=== PATIENT | female | born 1940 | race Caucasian/White ===

== ENCOUNTER 2021-05-09 13:26 | Emergency (ER) | payer MEDICARE, SELFPAY ==
--- NOTE | ~2021-05-09 | XR_ITS ---
EXAMINATION: XR finger 4th RT min 2V DATE: 05/09/2021 15:12 INDICATION: Postreduction fourth proximal phalangeal fracture TECHNIQUE: Dorsal palmar and lateral views of the right digit were obtained COMPARISON: 05/01/2021 at 1:54 PM FINDINGS: Decreased now one third shaft width palmar displacement and decreased now 20 degrees dorsal angulatio n of a transverse fracture across the proximal metadiaphyseal region of the right fourth proximal pha lanx. Splinting along the palmar side of the digit. Prominent soft tissue swelling about the base of the fourth digit. Mild to moderate polyarticular osteoarthritis as detailed on the prior radiograph. IMPRESSION: 1. Improved alignment post closed reduction and splinting of an extra articular fracture near the bas e of the fourth proximal phalanx. Reviewed, dictated and finalized at location A. IMPRESSION: 1. Improved alignment post closed reduction and splinting of an extra articular fracture near the base of the fourth proximal phalanx.
--- NOTE | ~2021-05-09 | XR_ITS ---
EXAMINATION: XR hand RT min 3V DATE: 05/09/2021 14:02 INDICATION: Right hand pain and deformity of the digit post fall TECHNIQUE: Posteroanterior, oblique and lateral views of the right hand were obtained. COMPARISON: None. FINDINGS: Diffuse osteopenia. Transverse metadiaphyseal fracture at the proximal aspect of the fourth proximal phalanx. There is two thirds shaft widths palmar displacement and 45 degree dorsal angulation. No oth er fractures identified. Alignment is otherwise normal. Polyarticular osteoarthritis, moderate severi ty at several of the interphalangeal joints with distal predominance and mild at the remaining interp halangeal joints, the metacarpophalangeal joints and first and fifth carpal metacarpal joints. There is suggestion of chronic erosions with sclerotic margins at the dorsal base of the fifth metacarpal, at the ulnar aspect of the head of the second proximal phalanx and at the tip of the ulnar styloid pr ocess. Periarticular soft tissue swelling at the proximal interphalangeal joints with more diffuse sw elling in the proximal to mid fourth digit. IMPRESSION: 1. Mild palmar displacement and 45 degrees dorsal angulation of a fracture at the proximal metadiaphy sis of the fourth proximal phalanx. 2. Diffuse osteopenia. 3. Mild to moderate polyarticular osteoarthritis. 4. A few chronic appearing erosions at the base of the fifth carpal metacarpal, head of the second pr oximal phalanx at the ulnar styloid process which could be due to an inflammatory arthritis or dmitry lline deposition diseases such as gout. Reviewed, dictated and finalized at location A. IMPRESSION: 1. Mild palmar displacement and 45 degrees dorsal angulation of a fracture at t he proximal metadiaphysis of the fourth proximal phalanx. 2. Diffuse osteopenia. 3. Mild to moderate polyarticular osteoarthritis. 4. A few chronic appearing erosions at the base of the fifth carpal metacarpal, head of the second proximal phalanx at the ulnar styloid process which could b e due to an inflammatory arthritis or crystalline deposition diseases such as g out.
[2021-05-09 13:33] VITALS: BP 127/91; PULSE 54; RESP 16; TEMP 36.6; O2SAT 100
--- NOTE | 2021-05-09 15:08 | ED.UPPEXIN ---
HPI - Extremity Injury (Upper) General Chief Complaint: Extremity Injury, Upper Stated Complaint: finger injury Time Seen by Provider: 05/09/21 13:31 Source: patient Mode of arrival: ambulatory Limitations: no limitations History of Present Illness HPI narrative: This is a 81 year old female that presents to the ER for right hand injury sustained just prior to arrival. Reports she had tripped and was trying to break her fall with her right hand. Reports pain and swelling to the right fourth finger with obvious deformity to the area. Reports decreased ROM in the finger. Denies hitting her head, loss of consciousness, other injuries, weakness or numbness. Related Data Home Medications Medication Instructions Recorded Confirmed omeprazole 20 mg capsule,delayed 20 mg PO DAILY 05/02/21 05/02/21 release Allergies Allergy/AdvReac Type Severity Reaction Status Date / Time No Known Allergies Allergy Verified 05/09/21 13:33 Review of Systems Review of Systems: CONSTITUTIONAL: Denies fever MUSCULOSKELETAL: Reports joint pain, and myalgia. NEUROLOGIC: Denies numbness All systems reviewed & are unremarkable except as noted in HPI and below PMFSH Past Medical History Medical History (Updated 05/09/21 @ 16:06 by Brti Navarro PA-C) Essential hypertension Hypothyroidism Family History Family History Father Family history of premature coronary heart disease Carcinoma of colon Family history of diabetes mellitus in first degree relative Mother Cerebrovascular accident Carcinoma of colon Family history of malignant neoplasm of breast in first degree relative Social History Social History (Updated 05/02/21 @ 13:57 by Ligia Smith MA) Smoking status: Former smoker Alcohol intake: current Substance use: never Exam Narrative: GENERAL: Well-appearing, well-nourished, and in no acute distress. HEAD: Normocephalic, atraumatic. EYES: EOMI. EXTREMITIES: Normal range of motion, except decreased ROM in the right 4th finger with obvious deformity. Moderate bruising and edema to the finger. Normal radial pulses. Normal sensation SKIN: Warm, dry, no rash. NEURO: No focal deficits. Alert and oriented x3. PSYCH: Normal mood and affect Course Consultations Consultation #1: Spoke with Dr. Jay about patient and workup who will follow up in clinic Date: 05/09/21 Time: 15:30 Vital Signs Vital signs: Vital Signs Temperature 97.9 F 07/28/21 13:33 Pulse Rate 54 L 05/09/21 13:33 Respiratory Rate 16 05/09/21 13:33 Blood Pressure 127/91 H 05/09/21 13:33 Pulse Oximetry 100 05/09/21 13:33 Temperature 97.9 F 05/09/21 13:33 Pulse Rate 54 L 05/09/21 13:33 Respiratory Rate 16 05/09/21 13:33 Blood Pressure 127/91 H 05/09/21 13:33 Pulse Oximetry 100 05/09/21 13:33 Procedures Orthopedic Fracture Reduction Fracture #1: Fracture Reduction date: 05/09/21 Fracture Reduction time: 15:59 Side: right Fracture Reduction Location: finger Analgesia: nerve block Pre-Procedure Neuro Vascular Exam: normal Technique: direct manipulation Post Reduction X-rays Demonstrate: acceptable reduction Post-reduction neuro exam: intact Post-reduction vascular exam: intact Splint Applied: Yes Patient Tolerated Procedure: well and no complications Orthopedic Splinting/Casting Injury #1: Splinting/Casting Date: 05/09/21 Splinting/Casting Time: 16:04 Side: right Upper Extremity Injury Location: finger Splint: prefabricated Pre-Formed: metal foam finger splint Pre-Procedure Neuro Vascular Exam: normal Post-Procedure Neuro Vascular Exam: normal MDM - Extremity Injury (Upper) MDM Narrative Medical decision making narrative: Patient presents to the ER for right hand injury sustained just prior to arrival. Right hand x-ray shows mild palmar di
[2021-05-09 16:13] VITALS: BP 136/84; PULSE 60; RESP 16; O2SAT 100
== END 2021-05-09 16:15 | disposition home or self-care (01) ==
PROVIDERS: Emergency Provider Emergency Medicine; PCP Family Medicine
DX: S62.614A Displaced fracture of proximal phalanx of right ring finger, initial encounter for closed fracture (principal); I10 Essential (primary) hypertension; E03.9 Hypothyroidism, unspecified; W01.0XXA Fall on same level from slipping, tripping and stumbling without subsequent striking against object, initial encounter
CPT/HCPCS: 26725; 73130; 73140; 99285

== ENCOUNTER 2021-09-04 10:20 | Outpatient (CLI) | payer MEDICARE, SELFPAY ==
[2021-09-04 10:39] LABS: Basophils Percent Auto 0.7 % (0.2-1.2); Eosinophils Absolute Auto 0.2 K/mm3 (0-0.3); Eosinophils Percent Auto 2.9 % (0-4.4); Hematocrit 42.3 % (37.0-47.0); Hemoglobin 14.5 g/dL (12.0-15.0); Immature Granulocyte Absolute 0.02 K/mm3 (0.00-0.031); Immature Granulocyte Percent A 0.3 % (0-0.5); Lymphocytes Absolute Auto 1.02 K/mm3 (0.9-3.2); Lymphocytes Percent Auto 16.7 % (18.3-44.2); Mean Corpuscular HGB Conc 34.3 g/dl (32-36); Mean Corpuscular Hemoglobin 33.2 pg (26-34); Mean Corpuscular Volume 96.8 fl (80-100); Mean Platelet Volume 10.9 fl (7.4-10.4); Monocytes Absolute Auto 0.6 K/mm3 (0.1-0.6); Neutrophils Absolute Auto 4.3 K/mm3 (1.3-6.7); Neutrophils Percent Auto 70.4 % (45.5-73.1); Platelet Count Result 207 k/mm3 (150-375); Red Blood Count 4.37 M/mm3 (4.2-5.4); Red Cell Distribution Width 12.6 % (11.5-14.5); White Blood Count 6.1 K/mm3 (4.5-10.0)
[2021-09-04 11:23] LABS: Anion Gap 6 mmol/L (8-16); Blood Urea Nitrogen 20 mg/dL (7-17); Calcium 9.6 mg/dL (8.4-10.2); Carbon Dioxide 29 mmol/L (22-30); Chloride 101 mmol/L (98-107); Cholesterol 222 mg/dL (0-200); Estimated Glomerular Filt Rate > 60; Glucose 108 mg/dL (65-110); HDL Direct 73 mg/dL; Potassium 4.1 mmol/L (3.4-5.0); Sodium 136 mmol/L (137-145); Triglycerides 146 mg/dL (<150)
[2021-09-04 11:34] LABS: LDL Cholesterol Direct 96 mg/dL
[2021-09-04 12:10] LABS: Free T4 Free Thyroxine 1.15 ng/mL (0.78-2.19)
== END 2021-09-04 10:21 | disposition home or self-care (01) ==
LOC: ANHLAB 10:22
PROVIDERS: PCP Family Medicine; Visit Provider Physician Assistant Medical
DX: I10 Essential (primary) hypertension (principal); E03.9 Hypothyroidism, unspecified; E78.00 Pure hypercholesterolemia, unspecified
CPT/HCPCS: 36415; 80048; 80061; 84439; 84443; 85025

== ENCOUNTER 2021-10-16 13:35 | Outpatient (CLI) | payer MEDICARE, SELFPAY ==
--- NOTE | 2021-10-16 13:42 | ECHO_ITS ---
Patient Info Name: Macie Jimenes Age: 81 years : 1940 Gender: Female Ht: 67 in Wt: 135 lbs BSA: 1.70 m2 HR: 98 bpm BP: 167 / 99 mmHg Technical Quality: Fair Exam Date: 10/16/2021 1:51 PM Exam Location: [facility] Patient Status: Outpatient Admit Date: 10/16/2021 Staff Ordering Physician: Lesli Willoughby PAC Batch Blender: Frances Santiago RDCS Attending Provider: Lesli Willoughby PAC Referring Physician: Case SINGLETON; Exam Type: CA echo doppler color flow Study Info Indications R01.1 - Cardiac murmur, unspecified Complete two-dimensional, color flow and Doppler transthoracic echocardiogram is performed. Summary 1. Complete two-dimensional, color flow and Doppler transthoracic echocardiogram is performed. 2. Left ventricular chamber dimension is normal. 3. Left ventricular systolic function is normal, estimated at 65-70%. 4. There is mildly increased left ventricular wall thickness. 5. The left ventricular diastolic function is grade I diastolic dysfunction. 6. E/e' 8 is minimally elevated. 7. Global longitudinal strain is normal at -21.8%. 8. There is mild aortic valve sclerosis. 9. There is trace aortic valve regurgitation. 10. The mitral valve has mildly calcified annulus. 11. No pulmonary hypertension, estimated pulmonary arterial systolic pressure is 25 mmHg. Left Ventricle E/e' 8 is minimally elevated. Global longitudinal strain is normal at -21.8%. Left ventricular chamber dimension is normal. Left ventricular systolic function is normal, estimated at 65-70%. There is mildly increased left ventricular wall thickness. The left ventricular diastolic function is grade I diastolic dysfunction. Right Ventricle Right ventricular systolic function is normal and with normal TAPSE 2.5 cm. Right ventricular chamber dimension is normal. Left Atria Left atrial chamber dimension is normal. Right Atria Right atrial chamber dimension is normal. Aortic Valve The aortic valve is trileaflet. There is mild aortic valve sclerosis. There is no aortic valve stenosis. There is trace aortic valve regurgitation. Pulmonic Valve There is no pulmonic regurgitation. Mitral Valve The mitral valve has mildly calcified annulus. There is no mitral valve stenosis. There is no mitral valve regurgitation. Tricuspid Valve There is no tricuspid valve regurgitation. No pulmonary hypertension, estimated pulmonary arterial systolic pressure is 25 mmHg. Pericardium/Pleural There is no pericardial effusion. Inferior Vena Cava Normal inferior vena cava with >50% collapse upon inspiration consistent with normal right atrial pressure, 5 mmHg. Aorta The aortic root size at the sinus of Valsalva is normal. Left Ventricular Outflow Tract Name Value Normal LVOT 2D LVOT Diameter 2.0 cm LVOT Doppler LVOT Peak Gradient 7 mmHg LVOT Mean Gradient 3 mmHg LVOT VTI 28 cm LVOT VTI/AV VTI Ratio 0.8 LVOT Stroke Volume 88 ml LVOT CO
== END 2021-10-16 13:36 | disposition home or self-care (01) ==
LOC: ANHCARD 13:37
PROVIDERS: PCP Family Medicine; Visit Provider Physician Assistant Medical
DX: R01.1 Cardiac murmur, unspecified (principal); I70.0 Atherosclerosis of aorta
CPT/HCPCS: 93306

== ENCOUNTER 2021-10-25 09:50 | Outpatient (CLI) | payer MEDICARE, SELFPAY ==
[2021-10-25 10:29] LABS: Anion Gap 8 mmol/L (8-16); Blood Urea Nitrogen 13 mg/dL (7-17); Calcium 9.5 mg/dL (8.4-10.2); Carbon Dioxide 29 mmol/L (22-30); Chloride 100 mmol/L (98-107); Estimated Glomerular Filt Rate > 60; Glucose 98 mg/dL (65-110); Potassium 4.1 mmol/L (3.4-5.0); Sodium 137 mmol/L (137-145)
== END 2021-10-25 09:51 | disposition home or self-care (01) ==
LOC: ANHLAB 09:54
PROVIDERS: PCP Family Medicine; Visit Provider Physician Assistant Medical
DX: E87.1 Hypo-osmolality and hyponatremia (principal); E03.9 Hypothyroidism, unspecified
CPT/HCPCS: 36415; 80048; 84443

== ENCOUNTER 2022-01-21 00:02 | Day surgery (SDC) | payer MEDICARE, OTHER, SELFPAY ==
[2022-01-09 13:25] VITALS: BMI 22.6
--- NOTE | 2022-01-20 11:12 | PM.HPGS ---
History of Present Illness History of Present Illness Consent: Risks, benefits, and alternatives have been discussed and questions answered. Patient agrees to proceed with procedure. Chief complaint: blanchard's Esophagus, family hx of colon ca Narrative: Macie Jimenes is a 81 year old female With a past history of known Blanchard's esophagus. Actually when she had her last EGD, almost 3 years ago, biopsies showed no Blanchard's mucosa At that time on the samples taken. She remains on omeprazole 20 mg daily. She also has history of colon polyps. Her last colonoscopy was 6 years ago. There is a family history of colon cancer Review of Systems Review of Systems: All systems reviewed & are unremarkable except as noted in HPI and below PMFSH Past Medical History Medical History Essential hypertension Hypothyroidism Family History Family History Father Family history of premature coronary heart disease Carcinoma of colon Family history of diabetes mellitus in first degree relative Mother Cerebrovascular accident Carcinoma of colon Family history of malignant neoplasm of breast in first degree relative Social History Social History Smoking status: Never smoker Alcohol intake: current Substance use: never Substance use type: does not use Living arrangements: with family Spiritual care concerns: No Meds Home Medications and Allergies Home Medications Medication Instructions Recorded Confirmed Type omeprazole 20 mg capsule,delayed 20 mg PO DAILY #90 cap 07/26/21 01/21/22 Rx release amlodipine 10 mg tablet 10 mg PO DAILY #90 tablet 08/31/21 01/21/22 Rx trazodone 50 mg tablet 100 mg PO QPM #180 tablet 08/31/21 01/21/22 Rx benazepril 40 mg tablet 40 mg PO DAILY #90 tablet 09/19/21 01/21/22 Rx levothyroxine 75 mcg tablet 75 mcg PO DAILY #30 tablet 10/26/21 01/21/22 Rx tizanidine 2 mg tablet 2 mg PO TID PRN #20 tablet 10/31/21 01/21/22 Rx aspirin 81 mg PO DAILY 01/09/22 01/21/22 History Allergies Allergy/AdvReac Type Severity Reaction Status Date / Time No Known Allergies Allergy Verified 01/21/22 09:27 Exam Const: General: alert Orientation/consciousness: patient oriented x3 Resp: Auscultation: clear to auscultation bilaterally Cardio: Rhythm: regular rhythm GI: GI Palp: Yes Soft to palpation and No Tenderness to palpation present (GI) Neuro: General: patient oriented x3 Assessment and Plan Assessment and plan (1) Blanchard's esophagus without dysplasia: Code(s): K22.70 - Blanchard's esophagus without dysplasia Status: Acute Assessment and Plan: EGD with possible biopsy or dilatation or cautery. (2) Colon cancer screening: Code(s): Z12.11 - Encounter for screening for malignant neoplasm of colon Status: Acute Assessment and Plan: Colonoscopy with possible biopsy or polypectomy or cautery or injection of substances.
[2022-01-21 09:20] VITALS: BP 143/81; PULSE 81; RESP 18; TEMP 36.7; O2SAT 98; BMI 21.6
[2022-01-21] MEDS: LACTATED RINGERS 1,000 ML 150 ML IV CONT (09:40)
--- NOTE | 2022-01-21 09:58 | P.PNAN_ITS ---
Anes - Initial Pre Proc Eval Procedure: Operation Date: 01/21/22 10:30 Proposed Procedures p Esophagogastroduodenoscopy & Screening Colonoscopy - Max Barillas MD Date/Time: 01/21/22 09:58 Surgeon: Max Barillas MD Pre Op Diagnosis: blanchard's Esophagus, family hx of colon ca Patient Data Age: 81 Gender: F Height: 1.68 m Weight: 60.7 kg Last Vital Signs Temp 98.0 F 01/21/22 09:20 Pulse 81 01/21/22 09:20 Resp 18 01/21/22 09:20 BP 143/81 H 01/21/22 09:20 Pulse Ox 98 01/21/22 09:20 Allergies Allergy/AdvReac Type Severity Reaction Status Date / Time No Known Allergies Allergy Verified 01/21/22 09:27 Home Medications Medication Instructions Recorded Confirmed Type omeprazole 20 mg capsule,delayed 20 mg PO DAILY #90 cap 07/26/21 01/21/22 Rx release amlodipine 10 mg tablet 10 mg PO DAILY #90 tablet 08/31/21 01/21/22 Rx trazodone 50 mg tablet 100 mg PO QPM #180 tablet 08/31/21 01/21/22 Rx benazepril 40 mg tablet 40 mg PO DAILY #90 tablet 09/19/21 01/21/22 Rx levothyroxine 75 mcg tablet 75 mcg PO DAILY #30 tablet 10/26/21 01/21/22 Rx tizanidine 2 mg tablet 2 mg PO TID PRN #20 tablet 10/31/21 01/21/22 Rx aspirin 81 mg PO DAILY 01/09/22 01/21/22 History Patient hx anesthesia problems: none Family hx anesthesia problems: none Results Review: All pre-operative results and documents have been reviewed as part of the pre-operative evaluation. [facility] Past Medical History Medical History Essential hypertension Hypothyroidism Family History Family History Father Family history of premature coronary heart disease Carcinoma of colon Family history of diabetes mellitus in first degree relative Mother Cerebrovascular accident Carcinoma of colon Family history of malignant neoplasm of breast in first degree relative Social History Social History Smoking status: Never smoker Alcohol intake: current Substance use: never Substance use type: does not use Living arrangements: with family Spiritual care concerns: No Anes - Eval Final PreProcedure Day of Procedure 01/21/22 09:58 Patient weight: normal Heart: regular rate and rhythm Lungs: clear to auscultation Airway: Mallampati scale class II Neurological: alert and oriented Last oral intake: >/= 8 hours ASA classification: II Emergent: no Anesthetic plan: proceed Anesthesia type and monitoring: general GIVS and standard monitoring Results Review: All pre-operative results and documents have been reviewed as part of the pre-operative evaluation. Informed Consent: The patient's anesthetic plan and its attendant risks and benefits were discussed with the patient/family/POA. Questions were solicited and answers provided to the satisfaction of the patient/family/POA.
[2022-01-21] MEDS: BENZOCAINE (*SP) 60 ML SPRAY CAN (HURRICAINE) 1 SPRAY MUCOUS MEM (10:20)
--- NOTE | 2022-01-21 10:49 | SUR.OPER ---
EGD START: 1022; END: 1026. COLONOSCOPY START: 1034; END: 1049.
[2022-01-21 10:53] VITALS: BP 110/67; PULSE 59; RESP 22; O2SAT 100
[2022-01-21 11:03] VITALS: BP 119/72; PULSE 63; RESP 22; O2SAT 100
[2022-01-21 11:13] VITALS: BP 124/84; PULSE 62; RESP 20; O2SAT 62
== END 2022-01-21 11:26 | disposition home or self-care (01) ==
PROVIDERS: PCP Family Medicine; Visit Provider Internal Medicine Gastroenterology
PROC: 0DJ08ZZ Inspection of Upper Intestinal Tract, Via Natural or Artificial Opening Endoscopic (ICD-10-PCS; CPT 43235; principal; 2022-01-21 10:30)
DX: Z12.11 Encounter for screening for malignant neoplasm of colon (principal); Z80.0 Family history of malignant neoplasm of digestive organs; K21.00 Gastro-esophageal reflux disease with esophagitis, without bleeding; K22.2 Esophageal obstruction; K44.9 Diaphragmatic hernia without obstruction or gangrene; K57.30 Diverticulosis of large intestine without perforation or abscess without bleeding; I10 Essential (primary) hypertension; E03.9 Hypothyroidism, unspecified
CPT/HCPCS: 43239; G0105; 88305; J2704; J7120

== ENCOUNTER 2022-01-26 12:50 | Emergency (ER) | payer MEDICARE, OTHER, SELFPAY ==
--- NOTE | ~2022-01-26 | XR_ITS ---
EXAMINATION: XR hip RT min 2V DATE: 01/26/2022 13:34 INDICATION: Right hip pain. TECHNIQUE: 3 views of right hip were obtained. COMPARISON: None. FINDINGS: Bone alignment is normal. No fracture. There is mild right hip osteoarthritis. There is sev ere lumbar spondylosis. IMPRESSION: 1. Mild right hip osteoarthritis. Reviewed, dictated and finalized at location A.
--- NOTE | ~2022-01-26 | XR_ITS ---
EXAMINATION: XR chest 2V DATE: 01/26/2022 13:34 INDICATION: Cough. TECHNIQUE: Frontal and lateral views of the chest were obtained. COMPARISON: None. FINDINGS: The chest demonstrates clear lungs without pneumonia, pleural effusion, or pneumothorax. Th e heart size is normal. IMPRESSION: 1. No acute cardiopulmonary disease. Reviewed, dictated and finalized at location A.
[2022-01-26 13:03] VITALS: BP 128/82; PULSE 90; RESP 16; TEMP 37.1; O2SAT 95
--- NOTE | 2022-01-26 13:17 | ED.GENADULT ---
HPI - General Adult General Chief complaint: Upper Respiratory Infection Stated complaint: sore throat Source: patient and family Mode of arrival: ambulatory Limitations: no limitations History of Present Illness HPI narrative: Patient presents for evaluation of sore throat since Friday. She states she had an EGD the day prior for GERD. She states that her EGD was normal. She initially thought the sore throat was simply related to her scope. No recent sick contacts. No history of COVID. She has received her COVID, influenza, and pneumonia vaccinations. No fever, chills, nausea vomiting. She reports a chronic nonproductive cough. As of late she has noted the cough to become productive of clear sputum. No SOB. She does not smoke. She further reports right-sided hip pain following a fall approximately a week ago. She states she lost her balance and attempted to lean against the refrigerator but missed it, landing on her right side. She denied her head. No loss of consciousness. was there at the time of the fall. She states that she did not fall very hard . She thinks she twisted her side. Upon review of EGD it shows patient had stenosis at GE junction that was traversed. There is also some reflux esophagitis and polyps in the fundus. Related Data Home Medications Medication Instructions Recorded Confirmed aspirin 81 mg PO DAILY 01/09/22 01/21/22 Allergies Allergy/AdvReac Type Severity Reaction Status Date / Time No Known Allergies Allergy Verified 01/21/22 09:27 Review of Systems Review of Systems: CONSTITUTIONAL: Denies fever, chills, or sweats. EYES: Denies visual changes, redness, or discharge. ENT: Reports sore throat. Denies rhinorrhea, congestion or otalgia. CARDIOVASCULAR: Denies chest pain, palpitations, or edema. RESPIRATORY: Reports cough. Denies shortness of breath. GASTROINTESTINAL: Denies abdominal pain, nausea, vomiting, or diarrhea. GENITOURINARY: Denies dysuria or hematuria. SKIN: Denies rash or itching. MUSCULOSKELETAL: Reports right hip pain with radiation to the right thigh. Denies back pain. NEUROLOGIC: Denies headache, numbness, dizziness, or weakness. PSYCHIATRIC: Denies anxiety or depression. [facility] Past Medical History Medical History (Updated 01/26/22 @ 13:59 by Adriel Simental, [employer], ) Essential hypertension GERD (gastroesophageal reflux disease) Hypothyroidism Surgical History Surgical History History of hysterectomy Family History Family History Father Family history of premature coronary heart disease Carcinoma of colon Family history of diabetes mellitus in first degree relative Mother Cerebrovascular accident Carcinoma of colon Family history of malignant neoplasm of breast in first degree relative Social History Social History Smoking status: Never smoker Alcohol intake: current Substance use: never Substance use type: does not use Living arrangements: with family Gender identity (if verbalized by the patient): Female Sexual Orientation (if Verbalized by the Patient): Straight or Heterosexual Spiritual care concerns: No Exam Narrative: GENERAL: Well-appearing, well-nourished, and in no acute distress. HEAD: Normocephalic, atraumatic. EYES: PERRLA and EOMI. ENT: Nares clear, no rhinorrhea or epistaxis. Mucous membranes moist. Oropharynx without tonsillar hypertrophy exudate or other lesions. There is mild posterior pharyngeal erythema. Uvula is midline. Bilateral TMs pearly moore nonbulging NECK: Supple. No adenopathy or masses. No carotid bruits or JVD CHEST: Clear to auscultation. No respiratory distress. No wheezes rales or rhonchi HEART: Regular rate and rhythm. No murmur heard. Normal peripheral pulses. ABDOMEN: Soft, nontender, nondistende
== END 2022-01-26 14:04 | disposition home or self-care (01) ==
PROVIDERS: Emergency Provider Nurse Practitioner; PCP Family Medicine
DX: J02.9 Acute pharyngitis, unspecified (principal); S76.011A Strain of muscle, fascia and tendon of right hip, initial encounter; W19.XXXA Unspecified fall, initial encounter; I10 Essential (primary) hypertension; K21.9 Gastro-esophageal reflux disease without esophagitis; E03.9 Hypothyroidism, unspecified
CPT/HCPCS: 71046; 73502; 87081; 87880; 99214; G0463

== ENCOUNTER 2022-04-11 13:33 | Outpatient (CLI) | payer MEDICARE, OTHER, SELFPAY ==
[2022-04-11 16:37] LABS: Free T4 Free Thyroxine 1.62 ng/mL (0.78-2.19)
== END 2022-04-11 13:34 | disposition home or self-care (01) ==
LOC: ANHLAB 13:38
PROVIDERS: PCP Family Medicine; Visit Provider Physician Assistant Medical
DX: E03.9 Hypothyroidism, unspecified (principal)
CPT/HCPCS: 36415; 84439; 84443

== ENCOUNTER 2022-11-08 13:57 | Emergency (ER) | payer MEDICARE, OTHER, SELFPAY ==
[2022-11-08 14:12] VITALS: BP 141/74; PULSE 77; RESP 16; TEMP 36.9; O2SAT 97
--- NOTE | 2022-11-08 14:22 | ED.URI ---
HPI - URI/Sore Throat General Chief Complaint: Upper Respiratory Infection Stated Complaint: cov exposure, fatigue, headache,sinus pressure Time Seen by Provider: 11/08/22 14:16 Source: patient Mode of arrival: ambulatory Limitations: no limitations History of Present Illness HPI Narrative: Patient presents today complaining of headache, fatigue, nausea, cough, rhinorrhea x2 days. Denies shortness of breath, chest pain, nasal congestion, fever. Has been had a positive COVID-19 test at home today. She has been taking Tylenol and cough medicine with relief. She has been vaccinated against COVID-19. Related Data Home Medications Medication Instructions Recorded Confirmed aspirin 81 mg tablet 81 mg PO DAILY 01/09/22 11/08/22 trazodone 50 mg tablet 50 mg PO HS 11/08/22 11/08/22 Allergies Allergy/AdvReac Type Severity Reaction Status Date / Time No Known Allergies Allergy Verified 11/08/22 14:19 Review of Systems Review of Systems: CONSTITUTIONAL: Denies body aches, fever, chills, or sweats.+ fatigue EYES: Denies visual changes, redness, or discharge. ENT: Denies congestion, sore throat, or otalgia.+ rhinorrhea CARDIOVASCULAR: Denies chest pain, palpitations, or edema. RESPIRATORY: Denies dyspnea.+ cough GASTROINTESTINAL: Denies abdominal pain, vomiting, or diarrhea.+ nausea GENITOURINARY: Denies dysuria or hematuria. SKIN: Denies rash, itching, or wounds. MUSCULOSKELETAL: Denies back pain, joint pain, or myalgia. NEUROLOGIC: Denies numbness, tingling, or weakness.+ headache PSYCH: Denies depression or anxiety. [facility] Past Medical History Medical History Essential hypertension GERD (gastroesophageal reflux disease) Hypothyroidism Surgical History Surgical History History of hysterectomy Family History Family History Father Family history of premature coronary heart disease Carcinoma of colon Family history of diabetes mellitus in first degree relative Mother Cerebrovascular accident Carcinoma of colon Family history of malignant neoplasm of breast in first degree relative Social History Social History Smoking status: Never smoker Alcohol intake: current Substance use: never Substance use type: does not use Living arrangements: with family Gender identity (if verbalized by the patient): Female Sexual Orientation (if Verbalized by the Patient): Straight or Heterosexual Spiritual care concerns: No Comments At time of signature, I have reviewed and agree with nursing past medical, surgical, social and family history unless otherwise noted. Please see nursing chart for further information. There is no relevant family history pertinent to the presenting complaint Exam Narrative: GENERAL: Well-appearing, well-nourished, and in no acute distress. HEAD: Normocephalic, atraumatic. EYES: EOMI. No redness or drainage. Conjunctivae normal. ENT: Mucous membranes pink and moist. Nares clear. No rhinorrhea. TMs normal bilaterally. Throat mildly erythematous without edema or exudate. Uvula midline. NECK: Normal AROM. Supple. No lymphadenopathy. CHEST: No respiratory distress. Clear to auscultation. HEART: Regular rate and rhythm. No murmur appreciated. Normal peripheral pulses. EXTREMITIES: Normal range of motion. No edema. SKIN: Warm, dry, no rash. Capillary refill normal. Normal skin turgor. NEURO: No focal deficits. Alert and oriented x3. Gait steady. PSYCH: Normal affect. No signs of depression or anxiety. Course Course Level of Care: Express Care Visit Vital Signs Vital signs: Vital Signs Temperature 98.5 F 11/08/22 14:12 Pulse Rate 77 11/08/22 14:12 Respiratory Rate 16 11/08/22 14:12 Blood Pressure 141/74 H 11/08/22
== END 2022-11-08 14:37 | disposition home or self-care (01) ==
PROVIDERS: Emergency Provider Nurse Practitioner; PCP Family Medicine
DX: U07.1 COVID-19 (principal); I10 Essential (primary) hypertension; K21.9 Gastro-esophageal reflux disease without esophagitis; E03.9 Hypothyroidism, unspecified
CPT/HCPCS: 87426; 99213; C9803; G0463

== ENCOUNTER 2023-01-06 12:06 | Outpatient (CLI) | payer MEDICARE, OTHER, SELFPAY ==
[2023-01-06 13:26] LABS: Basophils Percent Auto 0.5 % (0.2-1.2); Eosinophils Absolute Auto 0.1 K/mm3 (0-0.3); Hematocrit 42.7 % (37.0-47.0); Hemoglobin 14.5 g/dL (12.0-15.0); Immature Granulocyte Absolute 0.01 K/mm3 (0.00-0.031); Immature Granulocyte Percent A 0.2 % (0-0.5); Lymphocytes Absolute Auto 0.83 K/mm3 (0.9-3.2); Lymphocytes Percent Auto 15.1 % (18.3-44.2); Mean Corpuscular Hemoglobin 31.7 pg (26-34); Mean Corpuscular Volume 93.4 fl (80-100); Mean Platelet Volume 11.2 fl (7.4-10.4); Monocytes Absolute Auto 0.4 K/mm3 (0.1-0.6); Neutrophils Absolute Auto 4.1 K/mm3 (1.3-6.7); Neutrophils Percent Auto 74.2 % (45.5-73.1); Platelet Count Result 199 k/mm3 (150-375); Red Blood Count 4.57 M/mm3 (4.2-5.4); White Blood Count 5.5 K/mm3 (4.5-10.0)
[2023-01-06 14:01] LABS: Alanine Aminotransferase 27 U/L (6-35); Albumin Level 4.4 g/dL (3.5-5.1); Alkaline Phosphatase 104 U/L (38-126); Anion Gap 5 mmol/L (8-16); Aspartate Amino Transferase 29 U/L (14-36); Blood Urea Nitrogen 16 mg/dL (7-17); Calcium 9.5 mg/dL (8.4-10.2); Carbon Dioxide 32 mmol/L (22-30); Chloride 102 mmol/L (98-107); Cholesterol 200 mg/dL (0-200); Estimated Glomerular Filt Rate > 60; Glucose 97 mg/dL (65-110); HDL Direct 75 mg/dL; Potassium 4.1 mmol/L (3.4-5.0); Sodium 139 mmol/L (137-145); Triglycerides 151 mg/dL (<150)
[2023-01-06 14:16] LABS: LDL Cholesterol Direct 74 mg/dL
== END 2023-01-06 12:07 | disposition home or self-care (01) ==
PROVIDERS: PCP Family Medicine; Visit Provider Physician Assistant Medical
DX: G47.00 Insomnia, unspecified (principal); E03.9 Hypothyroidism, unspecified; I51.89 Other ill-defined heart diseases; E87.1 Hypo-osmolality and hyponatremia; I10 Essential (primary) hypertension; E78.5 Hyperlipidemia, unspecified
CPT/HCPCS: 36415; 80053; 80061; 84443; 85025

== ENCOUNTER 2023-04-18 14:45 | Outpatient (RCR) | payer MEDICARE, OTHER, SELFPAY ==
--- NOTE | 2023-03-06 11:58 | PTOPEVAL1 ---
Assessment and note entered by Tanvi Talbert, PT Evaluation Information Assessment Status Evaluation Diagnosis low back pain, sciatic nerve pain Onset one month ago Subjective Information Patient referred to physical therapy due to low back pain and sciatica. Patient spouse present at time of eval, when walking back to therapy gym patient experienced two losses of balance requiring and therapist assist to recover. Patient uses 2 wheeled walker in home environment and reports she just holds onto her when walking in the community. Patient states at this time she does not wish to focus on balance impairments at therapy.Patient currently rates back pain as 5/10 in low back with pain getting up to 10/10 down R posterior leg. Patient goal is to decrease back pain and improve mobility so she can independently go into the community. Patient also complains of neck stiffness which she would like to address during physical therapy, patient denies pain on this date but reports stiffness. Patient states neck stiffness makes it difficult to drive, her goal with her neck is to improve her ability to drive and improve upright posture. Reported Pain Level Pain Score 5: Self Report Assessment PT Clinical Summary Patient is 82 year old female referred to physical therapy due to back pain/sciatic nerve pain and neck pain. Patient currently rating pain as 5/10 in back and 0/10 in neck start of session. Patient demonstrating impairments in core strength, bilateral hip strength, cervical range of motion, and lower extremity muscle length at this time. Impairments in strength/muscle length are causing impairments upright posture/gait. Patient is also at increased risk for falls at this time due to impairments in lower extremity and core strength, educated to use walker at all times however limited receptiveness to education noted. Patient would benefit from skilled therapy services 1-2x/ wk for 4 weeks to improve cervical range of motion , improve core and lower extremity strength, improve lower extremity muscle length in order to decrease back pain and L lower extremity radicular symptoms as well as improve mobility of cervical spine. Plan of Care Interventions Electrical Stimulation,Hot Pack/Cold Pack,Manual Therapy,Neuro Re-education,Therapeutic Activities,
--- NOTE | 2023-03-06 11:59 | OPREHPOC ---
Outpatient Therapy Plan of Care This is a Multidisciplinary Plan of Care that may contain components documented by all disciplines (PT, OT, and ST.) PT Problem 1 PT Problem #1 Knowledge Deficit PT Goal 1 Goal Patient will demonstrate independence with home exercise program. Target Visit 8 PT Problem 2 PT Problem #2 Pain PT Goal 1 Goal Patient will report back pain as 3/10 with activity Target Visit 8 PT Goal 2 Goal Patient will report no radicular symptoms into L leg with walking Target Visit 8 PT Problem 3 PT Problem #3 Impaired Strength PT Goal 1 Goal Patient will perform single leg stance bilateral lower extremities for 5 seconds Target Visit 10 PT Goal 2 Goal Patient will perform 20 reps of bilateral hip abduction Patient will perform 20 reps of bilteral straight leg raise Target Visit 8 PT Problem 4 PT Problem #4 Impaired Range of Motion PT Goal 1 Goal Patient will report improved upright posture and perform head turns to safely look over shoulder while driving Target Visit 8 PT Problem 5 PT Problem #5 Impaired Functional Mobil PT Goal 1 Goal Patient will ambulate 2 laps independently in gym without upper extremity support with good upright posture Target Visit 10
--- NOTE | 2023-03-27 13:31 | PTOPPROG ---
Assessment and note entered by Garland Hernandez, PT, DPT Evaluation Information Assessment Status Progress Diagnosis low back pain, sciatic nerve pain Onset one month ago Subjective Information Pt states she is only a little bit better, she continues to report sciatic pain down both legs, from her buttock to her liz knees. Intermittently on the left leg she will get pain down to her foot . Pt reports 30% improvement in her overall symptoms. Pt reports good compliance with her HEP, she reports a decrease in pain for a short period of time after completing these. Pt decline any falls. Assessment PT Clinical Summary Macie presents to therapy today for her progress report following 6 visits of skilled therapy to treat her chronic neck and low back pain. Today she continues to have decreased LE strength, decreased balance and stability, and decreased core strength. She is making slow but steady progress towards her goal. Continuation of skilled services are indicated to continue progressing towards therapy goals, to manage pain, and to improve functional mobility. Plan of Care Interventions Electrical Stimulation,Hot Pack/Cold Pack,Manual Therapy,Neuro Re-education,Therapeutic Activities, Therapeutic Exercise,Wheelchair Training Other Interventions taping, cupping PT Services Indicated Yes Treatment Frequency and 2x/wk for 4 weeks Duration These treatments will address the objective and functional deficits as defined above. The patient will be advanced safely and appropriately in order for the patient to progress towards his/her prior level of function. Additional exercises will be introduced and as well as a comprehensive home exercise program upon discharge, if needed, ?to ensure carryover of functional gains achieved in the clinic. This treatment plan has been reviewed and agreement upon by the patient.
--- NOTE | 2023-04-23 08:25 | PCPTNOTE ---
Patient called to cancel her appointment today 04/23/23 and 04/25/23. No reason given.
--- NOTE | 2023-05-01 09:54 | PTOPDC ---
Assessment and note entered by Garland Hernandez, PT, DPT Evaluation Information Assessment Status Discharge - Pt Not Present Diagnosis low back pain, sciatic nerve pain Onset one month ago Subjective Information Pt called today and cancelled all of her remaining appointments. She stated she has a family emergency and will be out of town for an unknown amount of time. Assessment PT Clinical Summary Macie completed 9 visits of therapy from 03/06/23 to 04/30/23. She will be discharged at this time. If therapy is still indicated she will need a new order.
== END 2023-05-01 11:11 | disposition home or self-care (01) ==
LOC: ANHGOSHPT 14:45
PROVIDERS: PCP Family Medicine; Visit Provider Physician Assistant Medical
DX: M54.41 Lumbago with sciatica, right side (principal); M54.42 Lumbago with sciatica, left side; M54.2 Cervicalgia; G89.29 Other chronic pain
CPT/HCPCS: 97110; 97112; 97140; 97163; 97530

== ENCOUNTER 2025-04-13 12:23 | Outpatient (CLI) | payer MEDICARE, OTHER, SELFPAY ==
--- OUTSIDE RECORDS SUMMARY | 2025-04-13 12:32 | XMS_ITS | Clinical Summary ---
Author Organization [facility] [employer] Address [address] [place] [address] Care Team Providers Care Gasket Supervisor Name Role Phone Olayinka Jameson MD Primary Care Provider [phone] Source Comments [facility],non-owned Affiliates and Associated Physician Practices is amultiple site organization consisting of ambulatory clinics and hospital sitesin [place], [place], [place] and [place]. This disclosure is being madepursuant to the Care Everywhere program and may not contain all information available regarding this patient. Last updated 18.[facility] [employer] Social History Tobacco Use Types Packs/Day Years Used Date Smoking Tobacco: Never Assessed Comments Unknown Sex and Gender Information Value Date Recorded Sex Assigned at Not on file Legal Sex Female 3:28 PM CDT Gender Identity Not on file Sexual Orientation Not on file Plan of Treatment Health Maintenance Due Date Last Done Comments BONE DENSITY TESTING 1940 MEDICARE AWV 12 MONTHS 1942 DTAP/TDAP/TD VACCINES (1 - Tdap) 1961 PNEUMOCOCCAL VACCINE 50+ (1 of 1 - PCV) 1992 ZOSTER VACCINE (1 of 2) 1992 Respiratory Syncytial Virus (RSV) Vaccine Pt: or over 60 yrs (1 - 1-dose 75+ series) 2017 COVID-19 VACCINE ( - 2023-2 5 season) 2024 DEPRESSION SCREENING 10/13/2024 INFLUENZA VACCINE (Season Ended) 2025 07/27/20 HEPATITIS B VACCINE Aged Out No longe r eligible based on patient's age to complete this topic HIB VACCINE Aged Out No longer eligi ble based on patient's age to complete this topic HPV VACCINE Aged Out No longer eligi ble based on patient's age to complete this topic MENINGOCOCCAL (Group B) VACC INE SHARED DECISION-MAKING Aged Out No longer eligibl e based on patient's age to complete this topic MENINGOCOCCAL GROUPS A/C/Y/W VACCINE Aged Out No longer eligible b ased on patient's age to complete this topic Insurance MEDICARE [facility] MEDICARE Care Teams Gasket Supervisor Relationship Specialty Start Date End Date Olayinka Jameson MD [address] [place] [address] PCP - General 04/16/19
--- OUTSIDE RECORDS SUMMARY | 2025-04-13 12:32 | XMS_ITS | Clinical Summary ---
Author Organization [facility] Address [address] [place] [address] Care Team Providers Care Bias Cutting Machine Operator Name Role Phone Olayinka Jameson MD Primary Care Provider + [phone] Black Blackwood MD Unavailable [phone] Allergies Active Allergy Reactions Criticality Noted Date Comments Adhesive Itching,Redness Low 06/01/2023 Itching and redness, with open wounds around edges of tegaderm (transparent film dressing) Medications amLODIPine (NORVASC) 10 mg tablet Take 1 tablet (10 mg total) by mouth daily Active benazepriL (LOTENSIN) 40 mg tablet Take 1 tablet (40 mg total) by mouth daily Active levothyroxine (SYNTHROID) 75 mcg tablet Take 1 tablet (75 mcg total) by mouth bilingual interpreter before breakfast Active omeprazole (PriLOSEC) 20 mg capsule Take 1 capsule (20 mg total) by mouth daily Active traZODone (DESYREL) 50 mg tablet Take 1 tablet (50 mg total) by mouth nightly Active apixaban (ELIQUIS) 2.5 mg tablet Take 1 tablet (2.5 mg total) by mouth 2 (two) times a day 84 tablet 3 Active senna-docusate (PERICOLACE) 8.6-50 mg Take 1 tablet by mouth 2 (two) times a day 90 tablet 3 Active Active Problems Problem Noted Date Diagnosed Date Closed left hip fracture, initial encounter 05/14 Femur fracture, left 05/30/2023 Primary insomnia 05/30/2023 Primary hypertension 10/18/2021 Acquired hypothyroidism 10/18/2021 Systolic murmur 10/18/2021 Gastro-esophageal reflux disease without esophag itis 10/18/2021 Immunizations Immunization Administration Dates Next Due Tdap 03/06/2019 Family History Medical History Relation Name Comments Breast cancer Mother Relation Name Status Comments Mother Social History Tobacco Use Types Packs/Day Years Used Date Smoking Tobacco: Never Smokeless Tobacco: Never Tobacco Cessation:Counseling Given: Not Answered Social Connection and Isolat ion Panel [NHANES] Answer Date Recorded In a typical week, how many times do you talk on the phone with family, friends, or neighbors? More than three times a week 06/02/2023 How often do you get togethe r with friends or relatives? Three times a week 06/02/2023 How often do you attend chur ch or yazdanism services? 1 to 4 times per year 06/02/2023 Do you belong to any clubs o r organizations such as sabianism groups, unions, fraternal or athletic groups, or school groups? No 06/02/2023 How often do you attend meet ings of the clubs or organizations you belong to? Never 06/02/2023 Are you , , di vorced, , never , or living with a partner? 06/02/2023 Overall Financial Resource Strain (CARDIA) Answe r Date Recorded How hard is it for you to pa y for the very basics like food, housing, medical care, and heating? Not very hard 06/02/2023 PHQ-2 Answer Date Recorded PHQ-2 Total Score (If total score is 3 or more points, staff should administer the PHQ-9) 0 05/31/2023 Hunger Vital Sign Answer Date Recorded Within the past 12 months, y ou worried that your food would run out before you got the money to buy more. Never true 06/02/20 23 Within the past 12 months, t he food you bought just didn't last and you didn't have money to get more. Never true 06/02/2023 PRAPARE - Transportation Answer Date Re corded In the past 12 months, has l ack of transportation kept you from medical appointments or from getting medications? No 05/14 In the past 12 months, has l ack of transportation kept you from meetings, work, or from getting things needed for daily living? No 06/02/2023 Housing Stability Vital Sign Answer Valdemar e Recorded In the last 12 months, was t here a time when you were not able to pay the mortgage or rent on time? No 06/02/2023 In the last 12 months, how many places have you lived? 1 06/02/2023 In the last 12 months, was t here a time when you did not have a steady place to sleep or slept in a usp (including now)? No 06/02/2023 Personal Safety Answer Date Recorded Have you ever been in or are you currently in a harmful physical or emotional relationship or is someone making you feel afraid or unsafe? 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 Gender Identity Not on file Sexual Orientation Not on file Obstetrics History Last Filed Vital Signs Vital Sign Reading Time Taken Comments Blood Pressure 109/74 06/03/2023 4:04 PM CDT Pulse 87 06/03/2023 4:04 PM CDT Temperature 36.9 C (98.5 F) 06/03/2023 4:04 PM CDT Respiratory Rate 16 06/03/2023 4:04 PM CDT Oxygen Saturation 93% 06/03/2023 4:04 PM CDT Inhaled Oxygen Concentration - - Weight 62.1 kg (137 lb) 05/30/2023 2:32 PM CDT Height 170.2 cm (5' 7.01) 06/03/2023 7:35 AM CD T Body Mass Index 21.45 05/30/2023 2:32 PM CDT Plan of Treatment Health Maintenance Due Date Last Done Comments Osteoporosis Screening-Bone Density Scan 1940 Hepatitis B Screening 1960 Zoster Vaccine (1 of 2) 1992 Well Visit 65+ 2007 Depression Screening 05/30/2024 05/30/2023, 05/30/20 23 Fall Risk Assessment 06/03/2024 06/03/2023 Covid-19 Vaccine (2023-2 5 season) 2024 07/24/2021, 07/03/2021 Influenza Vaccine (Season Ended) 2025 08/07/2022, 07/24/2021, 07/19/2020, Additional history exists DTaP/Tdap/Td Vaccine (2 - Td or Tdap) 03/06/2029 03/06/2019 Pneumococcal vaccine 65+ Completed 019, 07/16/2018, 07/17/2015 Medical Devices Implanted Type Area [employer] Member Device Identifier Shelf Expiration Date Model / Serial / Lot Sheets & Nephew/Richco/Orth o Intertan 38cm 13mm Left Intertrochanter 125d 1.5mm Nail [id number] - [id number] Implanted:Qty: 1 on 05/31/2023 by Black Blackwood MD at [facility] Left: Hip Sheets [employer] Nephew/Richco/O rtho [id number] 01/19/2032 [id number] / / [id number] Sheets [employer] Nephew/Richco/Orth o Intertan 4.5mm 100mm 95mm Lag Compression Integrated Interlocking [id number] - [id number] Implanted:Qty: 1 on 05/31/2023 by Black Blackwood MD at [facility] Left: Hip Sheets [employer] Nephew/Richco/O rtho [id number] 08/14/2032 [id number] / / [id number] Insurance MEDICARE [facility] [place] Member Subscriber Plan / Payer (Ef fective 2017-Present) Name:Macie Jimenes Relation to Subscriber:Self Name:MACIE JIMENES Brandon Payer ID:[id number] Group ID:Not on file Type:COMMERCIAL Address: [facility] [address] [place], [place] [employer] Member Subscriber Plan / Payer ( fective 2017-) Name:Macie Jimenes Relation to Subscriber:Self Name:Macie Jimenes Payer ID:[id number] Group ID:Not on file Type:COMMERCIAL Address: [facility] [address] [place], [place] MEDICARE [employer] Advance Directives For more information, please contact: [phone] * Full Code (Latest Code Status on File) Date Activated Date Inactivated Comments 05/30/2023 10:02 PM 06/03/2023 10:26 PM Care Teams Bias Cutting Machine Operator Relationship Specialty Start Date End Date Olayinka Jameson MD PCP - General 02/12/17 Black Blackwood MD [address] [address] Consulting Physician Orthopedic Surgery 06/03/23
--- OUTSIDE RECORDS SUMMARY | 2025-04-13 12:32 | XMS_ITS | Referral Summary ---
Author Organization [facility] Address [address] [place] [address] Care Team Providers Care Field Representative Name Role Phone Olayinka Jameson MD Primary Care Provider + [phone] Black Blackwood MD Unavailable [phone] Allergies Active Allergy Reactions Criticality Noted Date [...] 1 tablet (75 mcg total) by mouth anesthesia director before breakfast Active omeprazole (PriLOSEC) 20 mg [...] Immunization Administration Dates Next Due Tdap 03/06/2019 Social History Tobacco Use Types Packs/Day Years [...] often do you attend chur ch or faith services? 1 to 4 times per year 06/02/2023 Do you belong to any clubs o r organizations such as confucianism groups, unions, fraternal or athletic groups, or [...] place to sleep or slept in a residential (including now)? No 06/02/2023 Personal Safety Answer Date Recorded Have you ever been in or are you currently in a harmful physical or emotional relationship or is someone making you feel afraid or unsafe? 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 Gender Identity Not on file Sexual Orientation Not on file Last Filed Vital Signs Vital Sign Reading [...] 05/30/2023 2:32 PM CDT Plan of Treatment Not on file Medical Devices Implanted Type Area Electro Optics Engineer Device Identifier Shelf Expiration Date Model / Serial / Lot [employer] Nephew/Richco/Orth o Intertan 38cm 13mm Left Intertrochanter 125d 1.5mm Nail [id number] - [id number] Implanted:Qty: 1 on 05/31/2023 by Black Blackwood MD at [facility] Left: Hip Sheets [employer]hew/Richco/O rtho [id number] 01/19/2032 [id number] / / [id number] Sheets & Nephew/Richco/Orth o Intertan 4.5mm 100mm 95mm Lag Compression Integrated Interlocking [id number] - [id number] Implanted:Qty: 1 on 05/31/2023 by Black Blackwood MD at [facility] Left: Hip Sheets [employer] Nephew/Richco/O rtho [id number] 08/14/2032 [id number] / / [id number] Insurance MEDICARE [facility] MEDICARE [employer] [place] Member Subscriber Plan / Payer ( fective 2017-Present) Name:Macie Jimenes Relation to Subscriber:Self Name:Macie Jimenes Payer ID:[id number] Group ID:Not on file Type:COMMERCIAL Address: [facility] [address] [place], [place] [address] [employer] Member Subscriber Plan / Payer ( fective 2017-Present) Name:Macie Jimenes Relation to Subscriber:Self Name:Macie Jimenes Payer ID:[id number] Group ID:Not on file Type:[employer] (1BOG) Address: [facility] [address] [place], [place] Advance Directives For more information, please contact: [phone] * Full Code (Latest Code Status on File) Date Activated Date Inactivated Comments 05/30/2023 10:02 PM 06/03/2023 10:26 PM Care Teams Field Representative Relationship Specialty Start Date End Date Olayinka Jameson MD PCP - General 02/12/17 Black Blackwood MD [address] [facility] [address] [place] [address] Consulting Physician Orthopedic Surgery 06/03/23
--- OUTSIDE RECORDS SUMMARY | 2025-04-13 12:32 | XMS_ITS | Continuity of Care Document ---
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 Name Role Phone Williams Lopez MD, MD Unavailable Unavail able Allergies, Adverse Reactions, Alerts Substance Reaction Status Criticality No Known Allergies Active No Inform ation Medications Medication Instructions Dosage Effective Dates (start - stop) Status Comments Ultracet 37.5 mg-325 mg tablet take 1 tablet by oral route every 4 - 6 hours as needed, for up to 5 days; do not exceed 8 tablets in 24hrs as needed for pain 1 tablet - Active doxycycline monohydrate 100 mg tablet take 1 tablet by oral route 2 times every day 100 MG - Active Eliquis 2.5 mg tablet take 1 tablet by oral route 2 times every day 2.5 MG - Active benazepril 20 mg-hydrochlorothiazid e 25 mg tablet take 1 tablet by oral route every day 1.00 tablet - Active amlodipine 5 mg tablet take 1 tablet by oral route every day 5 MG - Active omeprazole 20 mg capsule,delayed release take 1 capsule by oral route every day 30 minutes to 1 hour before a meal 20 MG - Active levothyroxine 75 mcg tablet take 1 tablet by oral route every day 75 MCG - Active trazodone 50 mg tablet take 1 tablet by oral route every day at bedtime 50 MG - Active Procedures Procedure Date Global/Postop followup visit Carpal tunnel release Ultrasound Guidance, Intraoperative Wrist Brace Gel Flex Implantable/Insertable Device, Not Spec Kenalog 10mg/mL Inject tndn sheath/lgmnt/gangl cyst Office/outpatient visit,est, mod 2023 Office/outpatient visit,est, mod 2022 X-ray Exam Hip Unilat With Pelvis When P erf 2-3 View Office/outpatient visit,est, mod 2022 X-ray exam hand, 3+ views Kenalog 10mg/mL Inject, therapeutic, carpal tunnel Office/outpatient visit,new, mod 2022 Global/Postop followup visit Global/Postop followup visit Initial Inpatient Or Observation Care, M od MDM Fixation IT Fx w/implant Advance Directives Directive Yes / No Effective Date File Name No Information Encounters Encounter Description Practice Location Reason(s) For Visit Diagnoses Date Provider Providers Copied on Encounter [facility], [address], [id number], [place] tel:[phone] [facility] No Information 5 Jessica MD Kramer. [address] [facility] [place] [address], [place], [place], [id number], [place]. tel:[phone] [facility], [address], [id number], [place] tel:[phone] [facility] Right hand (chief complaint) Carpal tunnel syndrome, right upper limb 4 Kalyan Owen. [address] [facility], [place] [address], [place], [place], [id number], [place]. tel:[phone] Referring Provider: Olayinka Mckeon [address], [address]. tel:[phone] [facility], [address], [id number], [place] tel:[phone] [facility] Carpal tunnel syndrome, right upper limb May-0 4 Jessica Kramer. [address] [facility], [address], [place], [place], [id number], [place]. tel:[phone] Referring Provider: Williams Dewitt, [address] [facility] [address], [place], [address]. tel:[phone] [facility], [address] [facility] [address], [place], [place], [id number], [place] tel:[phone] [facility] Carpal tunnel syndrome, right upper limb Apr-2 4 Kalyan Owen. [address] [facility], [place] [address], [place], [place], [id number], [place]. tel:[phone] Referring Provider: Olayinka Mckeon, [address], [address]. tel:[phone] Office/[place]pa [place]ient visit,est, [facility], [address] [facility] [address], [place], [id number], [place] tel:[phone] [facility] Right hand (chief complaint) Trigger finger, right index fingerCarpal tunnel syndrome, right upper limb Mar-0 4 Jessica Kramer. [address] [facility], [address], [place], [place], [id number], [place]. tel:[phone] Referring Provider: Olayinka Mckeon, [address], [address]. tel:[phone] Office/outpa [place]ient visit,est, [facility], [address], [id number], [place] tel:[phone] [facility] Left hip (chief complaint) Displ intertroch fx l femur, subs for clos fx w routn heal 3 Holt Ian. [address] [facility], [address], [place], [place], [id number], [place]. tel:[phone] Ref[facility]: [facility] [address] [place], [address]. tel:[phone] Office/outpa tient visit,[facility], [facility], [address] [address], [place], [place], [id number], [place] tel:[phone] [facility] Right hand (chief complaint) Pain in left hipCarpal tunnel syndrome, right upper limb 3 Jessica Kramer. [address] [facility], [address], [place], [place], [id number], [place]. tel:[phone] Referring Provider: Olayinka Mckeon [facility] [address] [place], [address]. tel:[phone] [facility], [address] [address], [place], [place], [id number], [place] tel:[phone] [facility] Pain in left hip 3 Yanet Sosa. [address] [facility], [address], [place], [place], [id number], [place]. tel:[phone] Referring Provider: Olayinka Mckeon [facility] [address] [place], [address]. tel:[phone] Office/outpa tient visit,[facility], [facility], [address] [address], [place], [place], [id number], [place] tel:[phone] [facility] Right hand (chief complaint) Pain in right handCarpal tunnel syndrome, right upper limb 3 Jessica Kramer. [address] [facility], [address], [place], [place], [id number], [place]. tel:[phone] Referring Provider: Olayinka Mckeon [facility] [address] [place], [address]. tel:[phone] [facility], [address] [address], [place], [place], [id number], [place] tel:[phone] [facility] Left hip (chief complaint) Pain in left hipDispl intertroch fx l femur, subs for clos fx w routn heal 3 Yanet Sosa. [address] [facility], [place] [address], [place], [place], [id number], [place]. tel:[phone] Referring Provider: Olayinka Mckeon [place] [address] [place], [address]. tel:[phone] [facility], [address], [id number], [place] tel:[phone] [facility] Hip surgery (chief complaint) Pain in left hipDispl intertroch fx l femur, subs for clos fx w routn heal 3 Yanet Sosa. [address] [facility], [place] [address], [place], [place], [id number], [place]. tel:[phone] Referring Provider: Ian Monae, [address] [facility] [address] [facility], [place], [address]. tel:[phone] Initial Inpatient Or Observation Care, [facility], [address] [place] [address], [id number], [place] tel:[phone] [facility] No Information 3 Jaison white [address] [place] [address], [place] [address], [place], [place], [id number], [place]. tel:[phone] Referring Provider: Black Esparza, [address] [address], [place], [address]. tel:[phone] Family History Family Member Type Diagnosis Age At Onset Brother Problem (finding) Cancer, unknown Father Problem (finding) Cancer, unknown Mother Problem (finding) Stroke Mother Problem (finding) Cancer, unknown Immunizations Vaccine Date Status Comments Pneumo (2 yrs or older) (PPV23) administe red Source: Other Provider influenza, injectable, quadr ivalent, (3 years or older) administered Source: Other Provid er Payers Payer name Insurance type Covered constitution party ID Yoselin mckeon(s) [place] Part B MB [id number] [facility] [place] [facility] [id number] Social History Type Description Quantity Date Captured Comments Alcohol Use Details Unknown Caffeine Use Details Unknown Tobacco Use Status No Information Smoking Status No Information Sex Female Chief Complaint And Reason For Visit No Information Reason For Referral Reason For Referral No Information Plan Of Treatment Date Type Action Status Referral Ordered: X-ray Exam Hip Unilat With Pelvis When Perf 2-3 View LT hip ordered Referral Ordered: X-ray exam hand, 3+ views RT ordered History Of Present Illness Encounter Date Complaint History Of Prese nt Illness Right hand Macie is 2 week s out from an ultrasound-guided right carpal tunnel release on February 13, 2024. She returns for follow-up. Right hand Macie returns t o the office today on December 17, 2023. She is here for follow-up of right carpal tunnel syndrome. Macie was last seen in the office on September 23, 2023. At that time, we discussed treatment options for the right carpal tunnel syndrome. We discussed open right carpal tunnel release surgery, and we also discussed an ultrasound-guided carpal tunnel release procedure as an alternative. Macie decided to proceed with observation, but she is here now for re-evaluation. She was given a cortisone injection for right carpal tunnel syndrome on August 26, 2023, but the injection only helped for about 2 weeks. Macie tells me today that she has also developed pain and triggering of her right index finger. She is here now for re-evaluation of her right hand. Left hip Macie presents to the office today for ongoing evaluation after IM nailing left femur for treatment of intertrochanteric femur fracture, date of fixation 05/31/2023. Denies injury, trauma, or fall since surgical intervention. Denies fever, chills, generalized feelings of illness or malaise. She has transitioned to weight bearing as tolerated and indicates that she still must use a walker with ambulation due to instability. She has completed physical therapy and does not wish to transition to therapy out of the house at this time. She is exercising on her own. Endorses pain diffusely located throughout the left hip that is mild and intermittent. It is worsened with overexertion and increases to her exercise regimen. Denies the use of interventions for pain control. She is ambulating with the use of a walker. Right hand Macie returns t o the office today on September 23, 2023. She is here for follow-up of right carpal tunnel syndrome. Macie was last seen in the office 4 weeks ago on August 26, 2023. At that time, she presented because of pain and weakness in her right hand. She was having difficulty with her handwriting. She reported that the symptoms were not waking her up at night. We decided to try a cortisone injection into the right carpal tunnel on August 26, 2023. I injected the right carpal tunnel with lidocaine and Kenalog for Macie's right carpal tunnel syndrome on August 26, 2023, and she returns today reporting that the injection helped for about 2 weeks, but the symptoms then seemed to recur. She describes her current symptoms as annoying. She does not find the symptoms terribly painful, and they still do not wake her up at night. She is here for re-evaluation today. Right hand Macie presents to the office today on August 26, 2023. She is here today because of pain and weakness of her right hand. Macie reports that she now has difficulty with her hand-writing because of her right hand pain and weakness. Her symptoms do not wake her up at night. Left hip Macie presents to the office today for ongoing postop evaluation after IM nailing left femur for treatment of intertrochanteric femur fracture, date of fixation 05/31/2023. Denies injury, trauma, or fall since surgical intervention. Denies fever, chills, generalized feelings of illness or malaise. She is compliant with the use of Eliquis and with maintaining 50% weightbearing in the left lower extremity. Endorses mild intermittent pain at the greater trochanter with active abduction. Denies the use of interventions for pain control. Would like to discuss transition to outpatient physical therapy. She is wheelchair-bound at today's office visit and indicates that she utilizes a walker at home with no difficulty. Hip surgery Macie presents to the office today for initial postop evaluation after IM nailing left femur for treatment of intertrochanteric femur fracture, date of fixation 05/31/2023. Denies injury, trauma, or fall since surgical intervention. Denies fever, chills, generalized feelings of illness or malaise. She is compliant with the use of Eliquis, expressing concern over cost. She is compliant with 25% weightbearing in the left lower extremity. She is participating in physical therapy and feels that it is going very well. She endorses mild intermittent pain predominantly located at the lateral thigh that is worsened with rolling over in bed or certain movements. She is utilizing activity modifications and acetaminophen for pain control. She is wheelchair-bound at today's office visit and accompanied to the visit by her and son. Functional Status Date Functional Assessmen t No Information Instructions Date Instruction Additional Infor mation Macie will continue to maintain an adequate level of functioning and exercise. She will notify the office if she wishes to proceed with therapy out of the house. She will initiate the transition to the use of a cane when she feels stable. She may use rest, ice, elevation, and over the counter oral and topical analgesics and NSAIDs for pain and inflammation control as needed. She demonstrates appropriate understanding of the diagnosis and the plan of care at this time and will follow up with the office as needed. Related to Displ intertroch fx l femur, subs for clos fx w routn heal Macie will transiti on to weightbearing as tolerated with the use of a walker at all times. She will continue in physical therapy and a therapy order for transition out of the house was initiated. She may use rest, ice, elevation, [id number] oral and topical pain medications and NSAIDs. She will maintain safety with activities that could cause injury or trauma to the hip. She demonstrates appropriate understanding of the diagnosis and plan of care at this time. Dictation completed with Léa et Lé[employer] software, grammatical variances and spelling errors may inadvertently occur. Related to Displ intertroch fx l femur, subs for clos fx w routn heal Ongoing long-term re covery, DVT prophylaxis, transition to ambulation without assistive device were reviewed in depth. She will continue the use of Eliquis and a refill will be sent to her pharmacy. She will transition to 50% weightbearing in the left lower extremity with the use of a walker. She will continue on physical therapy. She will continue pain control measures as needed with the use of [id number] pain medications, NSAIDs, topical products as needed, ice and heat as well as activity modifications. She demonstrates appropriate understanding and will follow-up with our office in 4 weeks. Dictation completed with [employer] Edition software, grammatical variances and spelling errors may inadvertently occur. Related to Displ intertroch fx l femur, subs for clos fx w routn heal Assessments Type Assessment Date No Information Patient Care Teams Name Effective Dates (start - stop) Status Members No Information
--- OUTSIDE RECORDS SUMMARY | 2025-04-13 12:32 | XMS_ITS | Continuity of Care Document ---
Author Organization formerly [facility] Address [address] [place] [address] Phone Care Team Providers Care Human Resources Office Assistant Name Role Phone Saray Romo Unavailable Unavailable Procedures Procedure Date Eye Exam & Treatment Refraction Advance Directives Directive Yes / No Effective Date File Name No Information Encounters Encounter Description Practice Location Reason(s) For Visit Diagnoses Date Provider Providers Copied on Encounter [facility], [address], [place], [place], [id number], [place] tel:[phone] [facility] No Information Dec-0 6-200 7 Clarissa So. [address], [place], [address], [place]. tel:[phone] Family History Family Member Type Diagnosis Age At Onset No Information Payers Payer name Insurance type Covered alliance party ID Authoriza tion(s) No Information Social History Type Description Quantity Date Captured Comments Sex Female Smoking Status No Information Chief Complaint And Reason For Visit No Information Reason For Referral Reason For Referral No Information History Of Present Illness Encounter Date Complaint History Of Prese nt Illness No Information Functional Status Date Functional Assessmen t No Information Instructions Date Instruction Additional Infor mation No Information Assessments Type Assessment Date No Information Patient Care Teams Name Effective Dates (start - stop) Status Members No Information
[2025-04-13 13:11] LABS: Hematocrit 42.3 % (37.0-47.0); Hemoglobin 14.0 g/dL (12.0-15.0); Immature Granulocyte Percent A 0.5 % (0-0.5); Lymphocytes Absolute Auto 0.91 K/mm3 (0.9-3.2); Mean Corpuscular HGB Conc 33.1 g/dl (32-36); Mean Corpuscular Hemoglobin 31.5 pg (26-34); Mean Corpuscular Volume 95.3 fl (80-100); Nucleated Red Blood Cells Absolute Auto 0.000 K/mm3 (0.0-0.012); Nucleated Red Blood Cells Perc 0.0 % (0.0-0.2); Platelet Count Result 188 k/mm3 (150-375); Red Blood Count 4.44 M/mm3 (4.2-5.4); White Blood Count 5.8 K/mm3 (4.5-10.0)
[2025-04-13 13:30] LABS: Alanine Aminotransferase 29 U/L (6-35); Albumin Level 4.2 g/dL (3.5-5.1); Alkaline Phosphatase 85 U/L (38-126); Anion Gap 6 mmol/L (4-12); Aspartate Amino Transferase 35 U/L (14-36); Bilirubin,Total 1.0 mg/dL (0.2-1.3); Blood Urea Nitrogen 19 mg/dL (7-17); Calcium 9.5 mg/dL (8.4-10.2); Carbon Dioxide 28 mmol/L (22-30); Chloride 105 mmol/L (98-107); Cholesterol 203 mg/dL (0-200); Estimated Glomerular Filt Rate > 60; Glucose 97 mg/dL (65-110); HDL Direct 74 mg/dL; Potassium 4.0 mmol/L (3.4-5.0); Sodium 139 mmol/L (137-145); Total Protein 7.1 g/dL (6.3-8.2); Triglycerides 107 mg/dL (<150)
[2025-04-13 13:49] LABS: Free T4 Free Thyroxine. 1.24 ng/dL (0.78-2.19)
[2025-04-13 14:02] LABS: Thyroid Stimulating Hormone 3.390 uIU/mL (0.465-4.680)
== END 2025-04-13 12:24 | disposition home or self-care (01) ==
PROVIDERS: PCP Family Medicine
DX: E78.00 Pure hypercholesterolemia, unspecified (principal); E03.9 Hypothyroidism, unspecified; E55.9 Vitamin D deficiency, unspecified; I11.0 Hypertensive heart disease with heart failure
CPT/HCPCS: 36415; 80053; 80061; 82306; 84439; 84443; 85025

== ENCOUNTER 2025-05-02 12:57 | Outpatient (CLI) | payer MEDICARE, OTHER, SELFPAY ==
--- NOTE | ~2025-05-02 | XR_ITS ---
XR lumbar spine 2-3V 05/02/2025 13:22 Indication: Lumbar radiculopathy Procedure: 3 views lumbar spine Comparison: No prior studies for comparison. Findings: There is disc narrowing at all lumbar levels. There is advanced multilevel facet hypertroph y. There is grade 1-2 spondylolisthesis at L5-S1 suspicious for spondylolysis. There is levoscoliosis centered at L1-2. Impression: 1: Severe lumbar spondylosis with levoscoliosis. Grade 1-2 spondylolisthesis at L5-S1. Reviewed, dictated and finalized at location A. Impression: 1: Severe lumbar spondylosis with levoscoliosis. Grade 1-2 spondylolisthesis at L5-S1.
== END 2025-05-02 12:58 | disposition home or self-care (01) ==
PROVIDERS: PCP Family Medicine; Visit Provider Nurse Practitioner Adult Health
DX: M47.26 Other spondylosis with radiculopathy, lumbar region (principal)
CPT/HCPCS: 72100

== ENCOUNTER 2025-05-09 14:46 | Outpatient (CLI) | payer MEDICARE, OTHER, SELFPAY ==
--- NOTE | ~2025-05-09 | DEXA_ITS ---
Bone Density Report Name: BANDAR OSORIO Age: 85 Sex: Female Ethnicity: White Date of : 1940 Indication: postmenopausal; screening for osteoporosis; height loss; prior fracture; hysterectomy; Referring Provider: GOLDIE POTTER Study: Bone densitometry was performed. Exam Date: May 09, 2025 Accession number: [id number] Bone Density: Region BMD T-score Z-score Classification AP Spine(L1-L4) 0.997 -0.5 2.3 Normal Femoral Neck (Right) 0.495 -3.2 -0.7 Osteoporosis Total Hip (Right) 0.510 -3.5 -1.3 Osteoporosis World Health Organization criteria for BMD impression classify patients as: Normal (T-score at or above -1.0), Osteopenia (T-score between -1.0 and -2.5), or Osteoporosis (T-score at or below -2.5). 10-year Fracture Risk: FRAX not reported because: Some T-score for Spine Total or Hip Total or Femoral Neck at or below -2.5 Prior hip or vertebral fracture Clinical Information Provided by Patient: Have had a previous hip or vertebral fracture Has had a low trauma fracture Has used the following medications: Vitamin D Has the following medical conditions: Hysterectomy Patient maximum height was 67 Menopause Age: 62 No regular weight bearing exercise Does not regularly consume dairy products Drinks caffeinated beverages Onset of menses at age 15 Number of children 2 Impression: The patient has established osteoporosis, based on the Right Total Hip T-score and the existence of a prior fracture. The patient has risk factors, including: previous fracture. Discussion: HIGH RISK OF FRACTURE. BONE DENSITY IS UNDESIRABLY LOW AT ONE OR MORE SKELETAL SITES, CONSISTENT WITH POSTMENOPAUSAL OSTEOPOROSIS. This patient's lowest T-score, in a patient who has previously fractured, meets the World Health Organization's (WHO) criteria for severe osteoporosis. In untreated patients, the risk of osteoporotic fracture increases approximately two-fold for each 1.0 SD decrease in T-score. Low bone density is not the only risk factor for fracture; also consider factors such as patient's age, frailty or poor health, risk of falling, risk of injury, previous osteoporotic fracture, family history of osteoporosis, cigarette smoking, low body weight, etc. Not everyone with low bone mineral density has osteoporosis; osteomalacia and other metabolic bone disorders should also be considered. Patients who have osteoporosis should be evaluated for specific diseases and conditions (secondary causes) that may cause or contribute to bone loss. The [place] Association [employer] Clinical Endocrinologists (AACE) and National Osteoporosis Foundation (NOF) recommend pharmacologic intervention for all postmenopausal women with a previous hip or vertebral fracture and a T-score in this range. The patient should follow a healthful lifestyle (good nutrition with adequate calcium and vitamin D, and appropriate weight-bearing exercise). Follow-Up: Consider a repeat BMD and Vertebral Fracture Assessment (VFA) exam in 2 years or sooner if medically necessary, to reassess this patient's status. Reported by: SAMANTHA on 05/09/2025 3:11:00 PM. Reviewed, dictated and finalized at location A.
== END 2025-05-09 14:47 | disposition home or self-care (01) ==
LOC: MICIMG 14:48
PROVIDERS: PCP Family Medicine; Visit Provider Nurse Practitioner Adult Health
DX: M81.0 Age-related osteoporosis without current pathological fracture (principal); Z78.0 Asymptomatic menopausal state
CPT/HCPCS: 77080